=== PATIENT | female | born 1980 | race Caucasian/White ===

== ENCOUNTER 2017-02-28 11:08 | Outpatient (CLI) | payer OTHER ==
[~2017-02-28] VITALS: Ht 170.2 cm; Wt 81.4 kg
[~2017-02-28 11:08] MED LIST: LEVORA-28 30 MC1 TA1 PO; NORCO 325 MG-51 TAB PO
[2017-02-28 11:18] VITALS: BP 114/59; PULSE 84; TEMP 98.3
[2017-02-28] MEDS ORDERED: PRENATAL MVI (12:18)
== END 2017-02-28 12:55 | disposition home or self-care (01) ==
LOC: LDRO 11:08
DX: O62.9 Abnormality of forces of labor, unspecified (principal); Z3A.39 39 weeks gestation of pregnancy; Z87.891 Personal history of nicotine dependence

== ENCOUNTER 2017-03-08 02:00 | Inpatient (IN) | payer OTHER ==
[~2017-03-08] VITALS: Ht 170.2 cm; Wt 81.8 kg
[2017-03-08] VITALS (17 sets, daily range): BP systolic 113–146; BP diastolic 59–89; PULSE 68–100; TEMP 98.3–98.5
[~2017-03-08 02:00] MED LIST changes: +PRENATAL MVI
[2017-03-08 03:00] LABS: HEMOGLOBIN 12.6 g/dl (12.5-16.0); MEAN CELL VOLUME 89 fl (80.0-100.0); MEAN CORPUSCULAR HEMOGLOBIN 31 pg (27.0-31.0); MEAN CORPUSCULAR HGB CONC 35 g/dl (33.0-37.0); MEAN PLATELET VOLUME 9.8 fl (7.4-10.4); PLATELET COUNT 186 K/mm3 (130-400); REDCELL DISTRIBUTION WIDTH-CV 12.4 % (11.5-14.5); WHITE BLOOD COUNT 8.4 K/mm3 (4.8-10.8)
[2017-03-08 03:06] LABS: ADD PATHOLOGY DIFF REVIEW NO; HEMATOCRIT 36.4 % (37.0-47.0)
[2017-03-08 03:18] LABS: BAND 38 % (0-10); EOSINOPHIL 2 % (0-4); METAMYELOCYTE 2 % (0-0); NEUTROPHILS 36 % (42.0-75.2); TOTAL CELLS COUNTED 100
[2017-03-08 03:19] LABS: PLATELET ESTIMATE NORMAL (NORMAL)
[2017-03-08] MEDS ORDERED: MOTRIN 800800 MG/TAB PO (03:21)
[2017-03-08] MEDS ORDERED: PERCOCET 325 MG1 TA2 PO (03:21)
[2017-03-09 07:16] VITALS: BP 111/55; PULSE 78; TEMP 98.3
== END 2017-03-09 14:05 | disposition home or self-care (01) | DRG 775 ==
LOC: LDR 02:00 → OB 09:40
PROVIDERS: Obstetrics & Gynecology
PROC: 10E0XZZ Delivery of Products of Conception, External Approach (ICD-10-PCS; principal; 2017-03-08)
DX: O48.0 Post-term pregnancy (principal); Z3A.40 40 weeks gestation of pregnancy; Z37.0 Single live birth
CPT/HCPCS: J2405; J2590; J7120

== ENCOUNTER → 2019-11-06 | Outpatient (CLI) | payer BC ==
[~2019-11-06] VITALS: Ht 170.2 cm; Wt 67.8 kg
[~2019-11-06] MED LIST changes: +AMOXICILLIN 8751 TAB PO; +MOTRIN 800800 MG/TAB PO; +PERCOCET 325 MG1 TA2 PO; +birth control PO
[2019-11-06 09:17] VITALS: BP 145/83; PULSE 103
[2019-11-06 10:00] VITALS: BP 119/84; PULSE 97
== END ==
LOC: COL.RAD 09:00
DX: R59.9 Enlarged lymph nodes, unspecified (principal)

== ENCOUNTER 2020-02-08 19:24 | Emergency (ER) | payer BC ==
[~2020-02-08] VITALS: Ht 170.2 cm; Wt 68.2 kg
[2020-02-08 19:40] VITALS: BP 118/77; TEMP 99.7
[2020-02-08] MEDS ORDERED: ZOFRAN 4MG T4 MG/TAB PO (20:06)
[2020-02-08] MEDS ORDERED: CLEOCIN HCL300 MG PO (20:06)
[2020-02-08 20:22] VITALS: PULSE 87
== END 2020-02-08 20:22 | disposition home or self-care (01) ==
LOC: COL.ER 19:24
DX: L03.211 Cellulitis of face (principal)